=== PATIENT | female | born 1985 | race Caucasian/White ===

== ENCOUNTER 2017-04-28 18:33 | Emergency (ER) | payer MEDICAID, OTHER ==
[~2017-04-28 18:33] MED LIST: CIPR500T2 PO; LORT5TAB PO; PHEN12.5 PO; POTA25TA4 PO; SSD1CRE EXT; TYLE3 PO; [UNRECOGNIZED DRUG - OTHER] PO
[2017-04-28] MEDS ORDERED: TERBUTALINE INJ 1 MG/ML AMP ONE (19:28)
--- NOTE | 2017-04-28 20:15 | PD ---
HPI Chief Complaint Decreased movement Date Seen: Apr 28, 2017 Travel History International Travel<30 Days: No Contact w/Intl Traveler<30Days: No Known Affected Area: No History of Present Illness HPI Patient 32-year-old white female 35 weeks presents with decreased movement today. Here on OB ED she does feel the baby move quite well, and NST is reactive, she is sixto every 3 minutes initially but not feeling them. Para: 2 : 3 History Obstetric History Obstetric History 2 vaginal deliveries Social History Alcohol Use: No Tobacco Use: No Substance Abuse: No Allergies-Medications (Allergen,Severity, Reaction): Coded Allergies: No Known Allergies (Verified , 03/20/12) Home Meds Active Scripts Silver Sulfadiazine (Silvadene 50 Gm)50 Applic/50 Gm Cr50 Applic EXT DAILY #1 Prov:SP WILDERO. 03/20/12 Hydrocodone-Acetaminophen (Lortab 5/500)5 Mg/500 Mg Tab1-2 Tab PO Q6HPRN #20 FOR PAIN Prov:SP WILDER D.O. 03/20/12 Potassium Bicarbonate (K-Lyte)25 Meq Tabef25 Meq PO DIRECTED #2 Ref 0 Prov:Ej Muñoz MD 01/10/09 Acetaminophen/Codeine (Tylenol #3)300 Mg/30 Mg Tab1 Tab PO Q6HPRN #20 Ref 0 Prov:Ej Muñoz MD 01/10/09 Promethazine Hcl 12.5 Mg Tab1 Tab PO Q6HPRN #12 Ref 0 Prov:Ej Muñoz MD 01/10/09 Ciprofloxacin Hcl 500 Mg Tab1 Tab PO BID #20 Ref 0 Prov:Ej Muñoz MD 01/10/09 Reported Medications Miscellaneous (Nyquil D Cold/Flu) Liq1 Dose PO DIRECTED Ref 0 01/10/09 Review of Systems General / Constitutional: No: Fever, Weight Gain, Chills, Other Eyes: No: Diploplia, Blurred Vision, Visual changes, Pain, Photophobia HENT: No: Headaches, Vertigo, Lightheadedness Cardiovascular: No: Irregular Rhythm, Chest Pain or Discomfort, Palpitations, Tachycardia, Syncope, Varicosities, Edema, Cyanosis Respiratory: No: Cough, Short of Breath, Other Gastrointestinal: No: Nausea, Vomiting, Diarrhea Genitourinary: No: Decreased Urinary Output, Oliguria Musculoskeletal: No: Limited ROM, Weakness, Cramping, Edema, Pain Skin: No Rash, No Itching, No Dryness, No Lumps, No Change in Pigmentation, No Change in Nails, No Alopecia, No Lesions Neurologic: No: Weakness, Dizziness, Syncope, Focal Abnormalities, Coordination Problem, Headache, Slurred Speech, Seizures Psychiatric: No: Depression, Suicidal Ideations, Homicidal Ideation Endocrine: No: Heat Intolerance, Cold Intolerance, Polydipsia, Polyuria, Other Physical Exam Narrative GENERAL: Well-nourished, well-developed patient. SKIN: Warm and dry. HEAD: Normocephalic and atraumatic. EYES: No scleral icterus. No injection or drainage. ENT: No nasal drainage noted. Mucous membranes pink. Airway patent. NECK: Supple, trachea midline. No JVD. CARDIOVASCULAR: Regular rate and rhythm without murmurs, gallops, or rubs. RESPIRATORY: Breath sounds equal bilaterally. No accessory muscle use. BREASTS: Bilateral exam showed no masses , no retractions, no nipple discharge. ABDOMEN/GI: Abdomen soft, non-tender, bowel sounds present, no rebound, no guarding Gravid to [35-] weeks size Fundal Height: [35-] GENITOURINARY: External Genitalia: intact and normal in appearance BUS glands: [-] Cervix: [-] Closed at the internal os Dilatation: [-] Closed Effacement: [-] Thick Station: [-] High out of the pelvis Presentation: [-] Baby on ultrasound is an oblique to transverse back down lie with the head to the left and the that had at times move down toward the pelvis. The lower uterine segment is empty Membranes: [intact ] Uterine Contractions: [Initially every 3 minutes however liter of fluid IV and some subcutaneous terbutaline the contractions went away-] FHT's: Category: [1-] Baseline: [-133] Reactive: [yes-] Variability: [-mod] Decels: [-none] EXTREMITIES: No cyanosis or edema. BACK: Nontender without obvious deformity. No CVA tenderness. NEUROLOGICAL: Awake and alert. Motor and sensory grossly within normal limits. Five out of 5 muscle strength in all muscle groups. Normal speech. Data Data Orders Terbutaline Inj (Brethine Inj) (04/28/17 19:28) Labs Bedside ultrasound done shows single intrauterine with normal amniotic fluid volume this in a oblique to back down transverse lie with the head to the left, amniotic fluid normal, cardiac motion within normal limits and normal anatomy scan MDM Interpretation(s) Patient 32-year-old white female 35 weeks of unregistered goes to [facility] presents complaining of decreased movement today. However here on OB ED the baby is a very nice reactive strip and the mother is feeling the baby move. She is initially sixto every 3 minutes not feeling them and was given a liter of IV fluid subcutaneous terbutaline and the contractions went away. Cervix is closed internal os fingertip external os very thick and very high presenting part out of the pelvis unreachable. Ultrasound was done at the bedside which shows an oblique lie to back down transverse lie with the head to the left Plan Plan discharge today patient home to monitor baby's movements with kick counts. She is to check with her OB provider this coming Sunday and let them know that we saw her and did an ultrasound showed the baby in unstable lie oblique to back down transverse. And that she may be a candidate for external version or manipulation if indicated at their facility in hospital Diagnosis Diagnosis: Primary Impression: Decreased movement affecting management of in third trimester Disposition: 01 DISCHARGE HOME Condition: Stable Patient Instructions: General Instructions, Labor (ED), Movement (ED) Additional Instructions: RETURN FOR CONTRACTIONS, LOSS OF FLUID (WATER BREAKING), VAGINAL BLEEDING, OR DECREASED MOVEMENT DRINK 8-10 LARGE GLASSES OF WATER EVERY DAY KEEP SCHEDULED APPOINTMENT WITH YOUR PROVIDER Departure Forms: Tests/Procedures Chente Cheatham II, MD Apr 28, 2017 20:14
[2017-04-28 20:52] LABS: BACTERIA, URINE RARE /hpf; BLOOD, URINE NEG (NEG); COMMENT (UR) CULT NOT INDICATED; CULTURE IF INDICATED CULT NOT INDICATED; GLUCOSE,URINE NEG (NEG); KETONE, URINE NEG (NEG); MUCUS URINE FEW /lpf (OCC); NITRITE,URINE NEG (NEG); PH, URINE 6.5 (5.0-8.5); SQUAMOUS EPITHELIAL CELL URINE <1 /hpf (0-5); URINE COLOR YELLOW (YELLW/STRAW)
== END 2017-04-28 20:59 | disposition home or self-care (01) ==
LOC: HOBED 18:33
DX: O36.8130 Decreased fetal movements, third trimester, not applicable or unspecified (principal); Z3A.35 35 weeks gestation of pregnancy
CPT/HCPCS: 59025; 76815; 81001; 96360; 96372; 99285; J3105